=== PATIENT | male | born 1930 | race Hispanic/Latino ===

== ENCOUNTER 2019-03-13 10:57 | Day surgery (SDC) | payer MEDICARE ==
[2019-03-13] MEDS ORDERED: NACL 0.9% 1000 ML 1,000 ML IV SCH (12:00)
[2019-03-13] MEDS ORDERED: DIPRIVAN 10 MG/ML IV ONE (12:18)
[2019-03-13] MEDS ORDERED: VERSED ONE (12:18)
[2019-03-13] MEDS ORDERED: AMIDATE IV ONE (12:22)
--- NOTE | 2019-03-13 12:43 | Procedure Note ---
Date of procedure: 03/13/19 Pre-op diagnosis: GERD Post-op diagnosis: other (Moderate,Distal Erosive Esophagitis (r/o Yip's Esophagus)/ Gastritis/ No Peptic Ulcer Disease noted) Procedure: EGD with Biopsy Anesthesia: MAC Surgeon: KIRILL QUINTERO Estimated blood loss: minimal Pathology: list Specimen disposition: to lab Condition: stable Disposition: same day (Continue treatment with PPI> Avoid aspirin and NSAID and anticoagulants for 3 days. Follow up in 1 to 2 weeks ([phone]).)
--- NOTE | 2019-03-13 12:50 | Operative Report ---
PROCEDURE: EGD with biopsy. INDICATIONS: This is an 88-year-old white male with a history of GERD symptoms over a long period of time. He also has an underlying history of coronary artery disease and has a pacemaker. He is on multiple medications including blood thinners like Xarelto. In addition, he is on omeprazole, aspirin, atenolol, vitamin B12, benazepril, calcium and vitamin D3 and Crestor. Because of his persistent GERD symptoms, EGD was done to assess for any worsening of his esophagitis or any evidence of Yip's esophagus. He also has a prior history of cholecystectomy, history of ischemic colitis and a fatty liver and hypothyroidism. DESCRIPTION OF PROCEDURE: The procedure was done after getting informed consent with MAC anesthesia. Instrument was passed through the hypopharynx into the esophagus, which showed moderate distal erosive esophagitis. Photodocumentation and biopsy was obtained. The stomach showed some mild antral gastritis. No ulcers were noted in the straight or the retroverted view. The pylorus is patent. The duodenum in the first and the second portion appeared normal. Biopsy was done from the gastric antrum and gastric body to rule out for H. pylori and atrophic gastritis. There was minimal bleeding from the biopsy sites and no complications associated with the procedure. ASSESSMENT: Gastroesophageal reflux disease symptoms, moderate distal erosive esophagitis, gastritis. No peptic ulcer disease noted. PLAN: Plan is to continue treatment with PPI and to hold the Xarelto for an additional 2-3 days if possible as well as his aspirin and aspirin-related products and follow up in the office in 1-2 weeks' time. Donna BOWDEN was in the room throughout the entirety of the procedure. There were no complications associated with the procedure and only minimal bleeding associated with the biopsies. JOB# [id number] AUDIE/KAROLYN
--- NOTE | 2019-03-13 13:16 | Anesthesia Day of Surgery ---
Anesthesia Day of Surgery - Day of Surgery Patient Examined: Yes Patient H&P Reviewed: Yes Patient is NPO: Yes Beta Blockers: Yes
--- NOTE | 2019-03-13 13:17 | Anesthesia Consultation ---
Anesthesia Consult and Med Hx Date of service: 03/13/19 - Airway Anesthetic Teeth Evaluation: Good ROM Head & Neck: Adequate Mental/Hyoid Distance: Adequate Mallampati Class: Class III Intubation Access Assessment: Good - Pulmonary Exam CTA: Yes - Cardiac Exam Cardiac Exam: No Murmur - Pre-Operative Health Status ASA Pre-Surgery Classification: ASA3 - Cardiovascular System Hx Hypertension: Yes Hx Coronary Artery Disease: Yes Hx Pacemaker: Yes
[2019-03-13 13:40] VITALS: BP 122/78
== END 2019-03-13 10:58 | disposition home or self-care (01) ==
LOC: GIO 10:57
DX: K21.0 Gastro-esophageal reflux disease with esophagitis (principal); K29.70 Gastritis, unspecified, without bleeding; K31.89 Other diseases of stomach and duodenum; I25.10 Atherosclerotic heart disease of native coronary artery without angina pectoris; E03.9 Hypothyroidism, unspecified; I11.0 Hypertensive heart disease with heart failure; I50.9 Heart failure, unspecified; Z90.49 Acquired absence of other specified parts of digestive tract; Z95.0 Presence of cardiac pacemaker; Z79.82 Long term (current) use of aspirin; Z79.899 Other long term (current) drug therapy; Z96.652 Presence of left artificial knee joint; Z98.890 Other specified postprocedural states
CPT/HCPCS: 43239; 88305; 88342; J2250; J2704; J7030

== ENCOUNTER 2019-05-25 10:21 | Inpatient (IN) | payer MEDICARE ==
[2019-05-25 10:57] LABS: Basophils % (Auto) 0.7 % (0.0-1.8); Eosinophils # (Auto) 0.1 K/mm3 (0.0-0.4); Eosinophils % (Auto) 0.8 % (0.0-4.3); Hematocrit 47.7 % (35.5-45.6); Hemoglobin 16.1 gm/dl (11.8-15.2); Lymphocytes % (Auto) 28.8 % (13.4-35.0); Mean Corpuscular HGB Conc 34 % (32-34); Mean Corpuscular Volume 88 fl (84-94); Monocytes # (Auto) 0.5 K/mm3 (0.0-0.8); Monocytes % (Auto) 7.4 % (0.0-7.3); Platelet Count 121 K/mm3 (140-440); Red Blood Count 5.41 M/mm3 (3.65-5.03); Red Cell Distribution Width 14.2 % (13.2-15.2)
--- NOTE | 2019-05-25 11:04 | Cat Scan Report ---
CT HEAD WITHOUT CONTRAST INDICATION : Code stroke. Neurologic deficits less than 6 hours or symptoms present upon awakening. TECHNIQUE: Axial, coronal and sagittal CT imaging was performed from the skull apex through the skul l base without contrast. All CT scans at this location are performed using CT dose reduction for ALA RA by means of automated exposure control. COMPARISON: CT head without contrast from 03/20/2014. FINDINGS: PARENCHYMA: No mass, midline shift, hemorrhage, extraaxial collection or acute territorial infarctio n. 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 Generalized atrophy is consist ent with the patient's age. VENTRICLES: Prominent secondary to atrophy. No acute abnormality. SOFT TISSUES: Soft tissues including the orbits appear normal. BONES: No acute osseous abnormality. SINUSES: No significant abnormality. ADDITIONAL FINDINGS: There is dense calcification of the distal internal carotid arteries. IMPRESSION: 1. No acute intracranial abnormality. If there is continued concern for an acute stroke, an MRI of th e brain without contrast is recommended for further evaluation. 2. Additional chronic changes as above. COMMUNICATION: Radiologist: Dr. Hansen Time of Discovery: 09:55 Time of Communication: 10:00 Licensed Practitioner Receiving Report: Dr. Alonso Read Back Performed: Yes. Signer Name: Roni Hansen MD Signed: 05/25/2019 11:00 AM Workstation Name: [id number]
--- NOTE | 2019-05-25 11:09 | Emergency Department Report ---
ED Neuro Deficit HPI - General Chief Complaint: Neuro Symptoms/Deficit Stated Complaint: NEURO SYMPTOMS Time Seen by Provider: 05/25/19 10:48 Source: patient, family Mode of arrival: Ambulatory Limitations: No Limitations - History of Present Illness Initial Comments: 88-year-old male with [place] episode [place] confusion at the airport at about 10:00 today. The patient drove to the airport successfully to pickup family members. However when they got out to the street the patient was confused. He pulled over to the side of the road and had an episode of right arm and face jerking. This lasted for several seconds. He was brought to the emergency department as a "code stroke". At the time my encounter he had completely returned to his baseline per his family although they state that he is "repeating himself". Patient did mention to me that he had had left arm and shoulder discomfort intermittently over the last 2-3 weeks and that he had seen a physician twice. However for an 88-year-old gentleman his speech was not overly repetitive. Family states that this is not his baseline. Any case, he was completely oriented 4 and fully capable of communication. -: Sudden, minutes(s) Location: right arm, other (right face and mouth twitching on the right) Presenting Symptoms: Present: Altered Mental Status History of same: No (no prior history of seizure or known stroke) Place: other (Airport) Severity: moderate Quality: other Improves With: other (spontaneous) Worsens With: none On Anticoagulants: Yes Context: sudden onset Associated Symptoms: denies other symptoms - Related Data Home Medications: Home Medications Medication Instructions Recorded Confirmed Last Taken Aspirin BABY CHEW TAB 81 mg PO DAILY 03/13/19 03/13/19 03/11/19 Atenolol 25 mg PO DAILY 03/13/19 03/13/19 03/13/19 Benazepril (Nf) 20 mg PO DAILY 03/13/19 03/13/19 03/13/19 Calcium 600-D3 Plus Caplet 1 tab PO DAILY 03/13/19 03/13/19 03/12/19 Crestor 10 mg PO DAILY 03/13/19 03/13/19 03/12/19 Cyanocobalamin 500 mg PO DAILY 03/13/19 03/13/19 03/12/19 Levothyroxine 50 mg PO DAILY 06/09/1903/13/19 03/12/19 Multiple Vitamins 1 tab PO DAILY 03/13/19 03/13/19 03/12/19 Omeprazole 20 mg PO DAILY 03/13/19 03/13/19 03/12/19 Tamsulosin 1 tab PO DAILY 03/13/19 03/13/19 03/12/19 Vitamin D3 2,000 UNIT CAP 1 tab PO DAILY 03/13/19 03/13/19 03/12/19 Xarelto 10 mg PO DAILY 03/13/19 03/13/19 03/11/19 Allergies/Adverse Reactions: Allergies Allergy/AdvReac Type Severity Reaction Status Date / Time No Known Allergies Allergy Verified 03/13/19 11:43 ED Review of Systems ROS: Stated complaint: NEURO SYMPTOMS Other details as noted in HPI Constitutional: denies: chills, fever Eyes: denies: eye pain, eye discharge, vision change ENT: denies: ear pain, throat pain Respiratory: denies: cough, shortness of breath, wheezing Cardiovascular: denies: chest pain, palpitations Endocrine: no symptoms reported Gastrointestinal: denies: abdominal pain, nausea, diarrhea Genitourinary: denies: urgency, dysuria Musculoskeletal: as per HPI (intermittent left upper extremity discomfort not currently). denies: back pain, joint swelling, arthralgia Skin: denies: rash, lesions Neurological: as per HPI, other. denies: headache, weakness, paresthesias Psychiatric: denies: anxiety, depression Hematological/Lymphatic: denies: easy bleeding, easy bruising ED Past Medical Hx - Past Medical History Previous Medical History?: Yes Hx Hypertension: Yes Hx Congestive Heart Failure: Yes - Surgical History Past Surgical History?: Yes Hx Coronary Stent: Yes (X3) Hx Pacemaker: Yes Hx Cholecystectomy: Yes - Social History Smoking Status: Never Smoker - Medications Home Medications: Home Medications Medication Instructions Recorded Confirmed Last Taken Type Aspirin BABY CHEW TAB 81 mg PO DAILY 03/13/19 03/13/19 03/11/19 History Atenolol 25 mg PO DAILY 03/13/19 03/13/19 03/13/19 History Benazepril (Nf) 20 mg PO DAILY 03/13/19 03/13/19 03/13/19 History Calcium 600-D3 Plus Caplet 1 tab PO DAILY 03/13/19 03/13/19 03/12/19 History Crestor 10 mg PO DAILY 03/13/19 03/13/19 03/12/19 History Cyanocobalamin 500 mg PO DAILY 03/13/19 03/13/19 03/12/19 History Levothyroxine 50 mg PO DAILY 03/13/19 03/13/19 03/12/19 History Multiple Vitamins 1 tab PO DAILY 03/13/19 03/13/19 03/12/19 History Omeprazole 20 mg PO DAILY 03/13/19 03/13/19 03/12/19 History Tamsulosin 1 tab PO DAILY 03/13/19 03/13/19 03/12/19 History Vitamin D3 2,000 UNIT CAP 1 tab PO DAILY 03/13/19 03/13/19 03/12/19 History Xarelto 10 mg PO DAILY 03/13/19 03/13/19 03/11/19 History ED Neuro Physical Exam - General Limitations: No Limitations General appearance: alert, in no apparent distress Suspected Stroke: No - Head Head exam: Present: atraumatic, normocephalic - Eye Eye exam: Present: normal appearance. Absent: scleral icterus - ENT ENT exam: Present: mucous membranes moist - Neck Neck exam: Present: normal inspection - Respiratory Respiratory exam: Present: normal lung sounds bilaterally. Absent: respiratory distress - Cardiovascular Cardiovascular Exam: Present: regular rate, normal rhythm. Absent: systolic murmur, diastolic murmur, rubs, gallop - GI/Abdominal GI/Abdominal exam: Present: soft, normal bowel sounds. Absent: distended, tenderness, guarding, rebound - Rectal Rectal exam: Present: deferred - Extremities Exam Extremities exam: Present: normal inspection - Back Exam Back exam: Present: normal inspection - Neurological Exam Neurological exam: Present: alert, oriented X3, CN II-XII intact. Absent: motor sensory deficit - NIHSS Assessment Interval: Baseline 1a. Level of Consciousness: alert/keenly responsive 1b. LOC Questions: answers both correctly 1c. LOC Commands: performs tasks correctly 2. Best Gaze: normal 3. Visual: no visual loss 4. Facial Palsy: normal symmetrical movement 5b. Motor Arm Right: no drift 5a. Motor Arm Left: no drift 6a. Motor Leg Left: no drift 6b. Motor Leg Right: no drift 7. Limb Ataxia: absent 8. Sensory: normal 9. Best Language: no aphasia 10. Dysarthria: normal 11. Extinction/Inattention: no abnormality Total Score: 0 Stroke Severity: No Stroke Symptoms - Psychiatric Psychiatric exam: Present: normal affect, normal mood - Skin Skin exam: Present: warm, dry, intact, normal color. Absent: rash ED Course Vital Signs 05/25/19 11:08 Temperature 97.8 F Pulse Rate 69 Respiratory 17 Rate Blood Pressure 127/79 [Left] O2 Sat by Pulse 97 Oximetry - Reevaluation(s) Reevaluation #1: It does sound like the patient had a complex partial seizure. I will give him a gram of Keppra. He will be admitted for further care and evaluation/observatio n. Perhaps a pacemaker interrogation could be considered. However I do not think it is emergent at this time. 05/25/19 11:09 Reevaluation #2: I spoke with telephone neurology. They're in concurrence with the presumptive diagnosis of seizure. They saw a left frontal hypodensity consistent with an old silent stroke which might be the focus. They agreed with them. Treatment with Keppra. Unfortunately the patient is not a candidate for MR study since he has a pacemaker. They agreed with hospitalization at this time. 05/25/19 11:13 - Lab Data Result diagrams: 05/25/19 10:44 05/25/19 10:44 Lab Results 05/25/19 05/25/19 05/25/19 Range/Units 10:32 10:44 10:44 WBC 6.9 (4.5-11.0) K/mm3 RBC 5.41 H (3.65-5.03) M/mm3 Hgb 16.1 H (11.8-15.2) gm/dl Hct 47.7 H (35.5-45.6) % MCV 88 (84-94) fl MCH 30 (28-32) pg MCHC 34 (32-34) % RDW 14.2 (13.2-15.2) % Plt Count 121 L (140-440) K/mm3 Lymph % (Auto) 28.8 (13.4-35.0) % [place] % (Auto) 7.4 H (0.0-7.3) % Eos % (Auto) 0.8 (0.0-4.3) % Baso % (Auto) 0.7 (0.0-1.8) % Lymph # 2.0 (1.2-5.4) K/mm3 [place] # 0.5 (0.0-0.8) K/mm3 Eos # 0.1 (0.0-0.4) K/mm3 Baso # 0.0 (0.0-0.1) K/mm3 Seg Neutrophils % 62.3 (40.0-70.0) % Seg Neutrophils # 4.3 (1.8-7.7) K/mm3 PT 15.5 H (12.2-14.9) Sec. INR 1.26 H (0.87-1.13) APTT 32.9 (24.2-36.6) Sec. Thrombin Time (15.1-19.6) Sec. Sodium (137-145) mmol/L Potassium (3.6-5.0) mmol/L Chloride (98-107) mmol/L Carbon Dioxide (22-30) mmol/L Anion Gap mmol/L BUN (9-20) mg/dL Creatinine (0.8-1.5) mg/dL Estimated GFR ml/min BUN/Creatinine Ratio % Glucose (75-100) mg/dL POC Glucose 117 H (70-105) Lactic Acid (0.7-2.0) mmol/L Calcium (8.4-10.2) mg/dL Magnesium (1.7-2.3) mg/dL Total Bilirubin (0.1-1.2) mg/dL Direct Bilirubin (0-0.2) mg/dL Indirect Bilirubin mg/dL AST (5-40) units/L ALT (7-56) units/L Alkaline Phosphatase (35-129) units/L Ammonia (25-60) umol/L Total Creatine Kinase (55-170) units/L CK-MB (CK-2) (0.0-4.0) ng/mL CK-MB (CK-2) Rel Index (0-4) Troponin T (0.00-0.029) ng/mL NT-Pro-B Natriuret Pep (0-900) pg/mL Total Protein (6.3-8.2) g/dL Albumin (3.9-5) g/dL Albumin/Globulin Ratio % 05/25/19 05/25/19 05/25/19 Range/Units 10:44 10:44 10:54 WBC (4.5-11.0) K/mm3 RBC (3.65-5.03) M/mm3 Hgb (11.8-15.2) gm/dl Hct (35.5-45.6) % MCV (84-94) fl MCH (28-32) pg MCHC (32-34) % RDW (13.2-15.2) % Plt Count (140-440) K/mm3 Lymph % (Auto) (13.4-35.0) % [place] % (Auto) (0.0-7.3) % Eos % (Auto) (0.0-4.3) % Baso % (Auto) (0.0-1.8) % Lymph # (1.2-5.4) K/mm3 [place] # (0.0-0.8) K/mm3 Eos # (0.0-0.4) K/mm3 Baso # (0.0-0.1) K/mm3 Seg Neutrophils % (40.0-70.0) % Seg Neutrophils # (1.8-7.7) K/mm3 PT (12.2-14.9) Sec. INR (0.87-1.13) APTT (24.2-36.6) Sec. Thrombin Time 16.5 (15.1-19.6) Sec. Sodium 142 (137-145) mmol/L Potassium 4.6 (3.6-5.0) mmol/L Chloride 104.5 (98-107) mmol/L Carbon Dioxide 21 L (22-30) mmol/L Anion Gap 21 mmol/L BUN 19 (9-20) mg/dL Creatinine 0.9 (0.8-1.5) mg/dL Estimated GFR > 60 ml/min BUN/Creatinine Ratio 21 % Glucose 119 H (75-100) mg/dL POC Glucose (70-105) Lactic Acid (0.7-2.0) mmol/L Calcium 9.4 (8.4-10.2) mg/dL Magnesium 1.70 (1.7-2.3) mg/dL Total Bilirubin 1.30 H (0.1-1.2) mg/dL Direct Bilirubin 0.2 (0-0.2) mg/dL Indirect Bilirubin 1.1 mg/dL AST 20 (5-40) units/L ALT 13 (7-56) units/L Alkaline Phosphatase 70 (35-129) units/L Ammonia (25-60) umol/L Total Creatine Kinase (55-170) units/L CK-MB (CK-2) (0.0-4.0) ng/mL CK-MB (CK-2) Rel Index (0-4) Troponin T < 0.010 (0.00-0.029) ng/mL NT-Pro-B Natriuret Pep (0-900) pg/mL Total Protein 6.5 (6.3-8.2) g/dL Albumin 4.1 (3.9-5) g/dL Albumin/Globulin Ratio 1.7 % 05/25/19 05/25/19 05/25/19 Range/Units 10:54 10:54 10:54 WBC (4.5-11.0) K/mm3 RBC (3.65-5.03) M/mm3 Hgb (11.8-15.2) gm/dl Hct (35.5-45.6) % MCV (84-94) fl MCH (28-32) pg MCHC (32-34) % RDW (13.2-15.2) % Plt Count (140-440) K/mm3 Lymph % (Auto) (13.4-35.0) % [place] % (Auto) (0.0-7.3) % Eos % (Auto) (0.0-4.3) % Baso % (Auto) (0.0-1.8) % Lymph # (1.2-5.4) K/mm3 [place] # (0.0-0.8) K/mm3 Eos # (0.0-0.4) K/mm3 Baso # (0.0-0.1) K/mm3 Seg Neutrophils % (40.0-70.0) % Seg Neutrophils # (1.8-7.7) K/mm3 PT (12.2-14.9) Sec. INR (0.87-1.13) APTT (24.2-36.6) Sec. Thrombin Time (15.1-19.6) Sec. Sodium (137-145) mmol/L Potassium (3.6-5.0) mmol/L Chloride (98-107) mmol/L Carbon Dioxide (22-30) mmol/L Anion Gap mmol/L BUN (9-20) mg/dL Creatinine (0.8-1.5) mg/dL Estimated GFR ml/min BUN/Creatinine Ratio % Glucose (75-100) mg/dL POC Glucose (70-105) Lactic Acid 1.70 (0.7-2.0) mmol/L Calcium (8.4-10.2) mg/dL Magnesium (1.7-2.3) mg/dL Total Bilirubin (0.1-1.2) mg/dL Direct Bilirubin (0-0.2) mg/dL Indirect Bilirubin mg/dL AST (5-40) units/L ALT (7-56) units/L Alkaline Phosphatase (35-129) units/L Ammonia 27.0 (25-60) umol/L Total Creatine Kinase (55-170) units/L CK-MB (CK-2) (0.0-4.0) ng/mL CK-MB (CK-2) Rel Index (0-4) Troponin T (0.00-0.029) ng/mL NT-Pro-B Natriuret Pep 498.3 (0-900) pg/mL Total Protein (6.3-8.2) g/dL Albumin (3.9-5) g/dL Albumin/Globulin Ratio % 05/25/19 Range/Units 10:54 WBC (4.5-11.0) K/mm3 RBC (3.65-5.03) M/mm3 Hgb (11.8-15.2) gm/dl Hct (35.5-45.6) % MCV (84-94) fl MCH (28-32) pg MCHC (32-34) % RDW (13.2-15.2) % Plt Count (140-440) K/mm3 Lymph % (Auto) (13.4-35.0) % [place] % (Auto) (0.0-7.3) % Eos % (Auto) (0.0-4.3) % Baso % (Auto) (0.0-1.8) % Lymph # (1.2-5.4) K/mm3 [place] # (0.0-0.8) K/mm3 Eos # (0.0-0.4) K/mm3 Baso # (0.0-0.1) K/mm3 Seg Neutrophils % (40.0-70.0) % Seg Neutrophils # (1.8-7.7) K/mm3 PT (12.2-14.9) Sec. INR (0.87-1.13) APTT (24.2-36.6) Sec. Thrombin Time (15.1-19.6) Sec. Sodium (137-145) mmol/L Potassium (3.6-5.0) mmol/L Chloride (98-107) mmol/L Carbon Dioxide (22-30) mmol/L Anion Gap mmol/L BUN (9-20) mg/dL Creatinine (0.8-1.5) mg/dL Estimated GFR ml/min BUN/Creatinine Ratio % Glucose (75-100) mg/dL POC Glucose (70-105) Lactic Acid (0.7-2.0) mmol/L Calcium (8.4-10.2) mg/dL Magnesium (1.7-2.3) mg/dL Total Bilirubin (0.1-1.2) mg/dL Direct Bilirubin (0-0.2) mg/dL Indirect Bilirubin mg/dL AST (5-40) units/L ALT (7-56) units/L Alkaline Phosphatase (35-129) units/L Ammonia (25-60) umol/L Total Creatine Kinase 76 (55-170) units/L CK-MB (CK-2) 3.2 (0.0-4.0) ng/mL CK-MB (CK-2) Rel Index 4.2 H (0-4) Troponin T (0.00-0.029) ng/mL NT-Pro-B Natriuret Pep (0-900) pg/mL Total Protein (6.3-8.2) g/dL Albumin (3.9-5) g/dL Albumin/Globulin Ratio % Paced rhythm with complete capture. The underlying rhythm appears to be atrial fibrillation. 05/25/19 11:53 - Radiology Data interpreted by me: Discussed with Val[facility] neuro. No acute findings per radiologist. Tell her neuro saw a left frontal hypodensity consistent with old ischemic ischemic injury. Critical care attestation.: If time is entered above; I have spent that time in minutes in the direct care of this critically ill patient, excluding procedure time. 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
[2019-05-25 11:13] LABS: INR 1.26 (0.87-1.13)
[2019-05-25 11:14] LABS: Partial Thromboplastin Time 32.9 Sec. (24.2-36.6)
[2019-05-25] MEDS ORDERED: KEPPRA 1,000 MG/NS 0.75% 100ML 1,000 MG/100 ML BAG IV ONE (11:14)
--- NOTE | 2019-05-25 11:23 | Emergency Department Report ---
ED Neuro Deficit HPI - General Chief Complaint: Neuro Symptoms/Deficit Stated Complaint: NEURO SYMPTOMS Time Seen by Provider: 05/25/19 10:48 Source: patient, family Mode of arrival: Ambulatory Limitations: No Limitations - History of Present Illness Initial Comments: [facility] Date of Service: 05/25/2019 10:30:10 Impression: TIA v seizure Metrics: Last Known Well: 05/25/2019 08:45:00 [facility] Notification Time: 05/25/2019 10:29:11 Arrival Time: 05/25/2019 10:21:00 Stamp Time: 05/25/2019 10:30:10 Time First Login Attempt: 05/25/2019 10:32:00 Video Start Time: 05/25/2019 10:32:00 Symptoms: Confusion NIHSS Start Assessment Time: 05/25/2019 10:40:00 Patient is not a candidate for tPA. Patient was not deemed candidate for tPA thrombolytics because of Current use of NOAs. Video End Time: 05/25/2019 10:45:00 CT head showed no acute hemorrhage or acute core infarct. CT head was reviewed. Advanced imaging was not obtained as the presentation was not suggestive of Large Vessel Occlusive Disease. ER physician notified of the decision on thrombolytics management. Comments: 88 yo with transient confusion with RUE twitching. TIA v seizure. Now back to baseline, NIHSS 0. CT with no acute process, but there is a L frontal hypodensity suggesting prior silent stroke. Differential today TIA v focal seizure. Will need further work-up but with NIHSS 0 no tpA or intervention indicated. Our recommendations are outlined below. Recommendations: Continue Xarelto Recommended Scan: MRI Head with and Without Contrast Lipid Panel to Be Obtained, if Not Done in the Last Three Months Therapies: Physical Therapy, Occupational Therapy, Speech Therapy Assessment When Applicable Dysphaghia Screen: Swallow Evaluation, Bedside DVT prophylaxis: Choice of Primary Team Disposition: Sign Out Sign Out: Discussed with Emergency Department Provider History of Present Illness: Patient is a 88 years old Male. Patient was brought by private transportation with symptoms of Confusion 88 yo was noted to be confused when picking family up at airport this morning. Left home and per was normal at 0845. When family met him he was confused, did not recognize daughter, and granddaughter noted RUE twitching. They decided to bring him to the ER, and he was alert enough to direct the family to the ER. Since arrival all symptoms resolved and at or near baseline. He does take Xarelto, last dose yesterday afternoon. CT head showed no acute hemorrhage or acute core infarct. CT head was reviewed. There is history of Recent Anticoagulants. Examination: 1A: Level of Consciousness - Alert; keenly responsive + 0 1B: Ask Month and Age - Both Questions Right + 0 1C: Blink Eyes & Squeeze Hands - Performs Both Tasks + 0 2: Test Horizontal Extraocular Movements - Normal + 0 3: Test Visual Luis - No Visual Loss + 0 4: Test Facial Palsy (Use Grimace if Obtunded) - Normal symmetry + 0 5A: Test Left Arm Motor Drift - No Drift for 10 Seconds + 0 5B: Test Right Arm Motor Drift - No Drift for 10 Seconds + 0 6A: Test Left Leg Motor Drift - No Drift for 5 Seconds + 0 6B: Test Right Leg Motor Drift - No Drift for 5 Seconds + 0 7: Test Limb Ataxia (FNF/Heel-Valente) - No Ataxia + 0 8: Test Sensation - Normal; No sensory loss + 0 9: Test Language/Aphasia - Normal; No aphasia + 0 10: Test Dysarthria - Normal + 0 11: Test Extinction/Inattention - No abnormality + 0 NIHSS Score: 0 Patient was informed the Neurology Consult would happen via TeleHealth consult by way of interactive audio and video telecommunications and consented to receiving care in this manner. Due to the immediate potential for life-threatening deterioration due to underlying acute neurologic illness, I spent 35 minutes providing critical care. This time includes time for face to face visit via telemedicine, review of medical records, imaging studies and discussion of findings with providers, the patient and/or family. Dr Albaro Bolanos [facility] Last Observed Normal: 08:45 Location: right arm, other (right face and mouth twitching on the right) History of same: No (no prior history of seizure or known stroke) Place: other ([place]) Severity: moderate Quality: other Improves With: other (spontaneous) Worsens With: none On Anticoagulants: Yes - Related Data Home Medications: Home Medications Medication Instructions Recorded Confirmed Last Taken Aspirin BABY CHEW TAB 81 mg PO DAILY 03/13/19 03/13/19 03/11/19 Atenolol 25 mg PO DAILY 03/13/19 03/13/19 03/13/19 Benazepril (Nf) 20 mg PO DAILY 03/13/19 03/13/19 03/13/19 Calcium 600-D3 Plus Caplet 1 tab PO DAILY 03/13/19 03/13/19 03/12/19 Crestor 10 mg PO DAILY 03/13/19 03/13/19 03/12/19 Cyanocobalamin 500 mg PO DAILY 03/13/19 03/13/19 03/12/19 Levothyroxine 50 mg PO DAILY 03/13/19 03/13/19 03/12/19 Multiple Vitamins 1 tab PO DAILY 03/13/19 03/13/19 03/12/19 Omeprazole 20 mg PO DAILY 03/13/19 03/13/19 03/12/19 Tamsulosin 1 tab PO DAILY 03/13/19 03/13/19 03/12/19 Vitamin D3 2,000 UNIT CAP 1 tab PO DAILY 03/13/19 03/13/19 03/12/19 Xarelto 10 mg PO DAILY 03/13/19 03/13/19 03/11/19 Allergies/Adverse Reactions: Allergies Allergy/AdvReac Type Severity Reaction Status Date / Time No Known Allergies Allergy Verified 03/13/19 11:43 ED Review of Systems ROS: Stated complaint: NEURO SYMPTOMS Other details as noted in HPI Constitutional: denies: chills, fever Eyes: denies: eye pain, eye discharge, vision change ENT: denies: ear pain, throat pain Respiratory: denies: cough, shortness of breath, wheezing Cardiovascular: denies: chest pain, palpitations Endocrine: no symptoms reported Gastrointestinal: denies: abdominal pain, nausea, diarrhea Genitourinary: denies: urgency, dysuria Musculoskeletal: as per HPI (intermittent left upper extremity discomfort not currently). denies: back pain, joint swelling, arthralgia Skin: denies: rash, lesions Neurological: as per HPI, other. denies: headache, weakness, paresthesias Psychiatric: denies: anxiety, depression Hematological/Lymphatic: denies: easy bleeding, easy bruising ED Past Medical Hx - Past Medical History Previous Medical History?: Yes Hx Hypertension: Yes Hx Congestive Heart Failure: Yes - Surgical History Past Surgical History?: Yes Hx Coronary Stent: Yes (X3) Hx Pacemaker: Yes Hx Cholecystectomy: Yes - Social History Smoking Status: Never Smoker - Medications Home Medications: Home Medications Medication Instructions Recorded Confirmed Last Taken Type Aspirin BABY CHEW TAB 81 mg PO DAILY 03/13/19 03/13/19 03/11/19 History Atenolol 25 mg PO DAILY 03/13/19 03/13/19 03/13/19 History Benazepril (Nf) 20 mg PO DAILY 03/13/19 03/13/19 03/13/19 History Calcium 600-D3 Plus Caplet 1 tab PO DAILY 03/13/19 03/13/19 03/12/19 History Crestor 10 mg PO DAILY 03/13/19 03/13/19 03/12/19 History Cyanocobalamin 500 mg PO DAILY 03/13/19 03/13/19 03/12/19 History Levothyroxine 50 mg PO DAILY 03/13/19 03/13/19 03/12/19 History Multiple Vitamins 1 tab PO DAILY 03/13/19 03/13/19 03/12/19 History Omeprazole 20 mg PO DAILY 03/13/19 03/13/19 03/12/19 History Tamsulosin 1 tab PO DAILY 03/13/19 03/13/19 03/12/19 History Vitamin D3 2,000 UNIT CAP 1 tab PO DAILY 03/13/19 03/13/19 03/12/19 History Xarelto 10 mg PO DAILY 03/13/19 03/13/19 03/11/19 History ED Neuro Physical Exam - General Limitations: No Limitations General appearance: alert, in no apparent distress Suspected Stroke: Yes - NIHSS Assessment Interval: Baseline 1a. Level of Consciousness: alert/keenly responsive 1b. LOC Questions: answers both correctly 1c. LOC Commands: performs tasks correctly 2. Best Gaze: normal 3. Visual: no visual loss 4. Facial Palsy: normal symmetrical movement 5b. Motor Arm Right: no drift 5a. Motor Arm Left: no drift 6a. Motor Leg Left: no drift 6b. Motor Leg Right: no drift 7. Limb Ataxia: absent 8. Sensory: normal 9. Best Language: no aphasia 10. Dysarthria: normal 11. Extinction/Inattention: no abnormality Total Score: 0 Stroke Severity: No Stroke Symptoms ED Course Vital Signs 05/25/19 11:08 Temperature 97.8 F Pulse Rate 69 Respiratory 17 Rate Blood Pressure 127/79 [Left] O2 Sat by Pulse 97 Oximetry - Lab Data Result diagrams: 05/25/19 10:44 Lab Results 05/25/19 05/25/19 05/25/19 Range/Units 10:32 10:44 10:44 WBC 6.9 (4.5-11.0) K/mm3 RBC 5.41 H (3.65-5.03) M/mm3 Hgb 16.1 H (11.8-15.2) gm/dl Hct 47.7 H (35.5-45.6) % MCV 88 (84-94) fl MCH 30 (28-32) pg MCHC 34 (32-34) % RDW 14.2 (13.2-15.2) % Plt Count 121 L (140-440) K/mm3 Lymph % (Auto) 28.8 (13.4-35.0) % Gem % (Auto) 7.4 H (0.0-7.3) % Eos % (Auto) 0.8 (0.0-4.3) % Baso % (Auto) 0.7 (0.0-1.8) % Lymph # 2.0 (1.2-5.4) K/mm3 Gem # 0.5 (0.0-0.8) K/mm3 Eos # 0.1 (0.0-0.4) K/mm3 Baso # 0.0 (0.0-0.1) K/mm3 Seg Neutrophils % 62.3 (40.0-70.0) % Seg Neutrophils # 4.3 (1.8-7.7) K/mm3 PT 15.5 H (12.2-14.9) Sec. INR 1.26 H (0.87-1.13) APTT 32.9 (24.2-36.6) Sec. Thrombin Time (15.1-19.6) Sec. POC Glucose 117 H (70-105) 08/24/19 Range/Units 10:44 WBC (4.5-11.0) K/mm3 RBC (3.65-5.03) M/mm3 Hgb (11.8-15.2) gm/dl Hct (35.5-45.6) % MCV (84-94) fl MCH (28-32) pg MCHC (32-34) % RDW (13.2-15.2) % Plt Count (140-440) K/mm3 Lymph % (Auto) (13.4-35.0) % Gem % (Auto) (0.0-7.3) % Eos % (Auto) (0.0-4.3) % Baso % (Auto) (0.0-1.8) % Lymph # (1.2-5.4) K/mm3 Gem # (0.0-0.8) K/mm3 Eos # (0.0-0.4) K/mm3 Baso # (0.0-0.1) K/mm3 Seg Neutrophils % (40.0-70.0) % Seg Neutrophils # (1.8-7.7) K/mm3 PT (12.2-14.9) Sec. INR (0.87-1.13) APTT (24.2-36.6) Sec. Thrombin Time 16.5 (15.1-19.6) Sec. POC Glucose (70-105) Critical care attestation.: If time is entered above; I have spent that time in minutes in the direct care of this critically ill patient, excluding procedure time. ED Disposition Clinical Impression: Spell of altered consciousness Disposition: DC-09 OP ADMIT IP TO THIS HOSP Is pt being admited?: Yes Condition: Stable
[2019-05-25 11:31] LABS: Albumin 4.1 g/dL (3.9-5); Bilirubin,Direct 0.2 mg/dL (0-0.2); Creatine Kinase MB 3.2 ng/mL (0.0-4.0)
[2019-05-25 11:37] LABS: BUN/Creatinine Ratio 21; Blood Urea Nitrogen 19 mg/dL (9-20); Calcium 9.4 mg/dL (8.4-10.2); Hemolysis Index 25
[2019-05-25] MEDS ORDERED: BABY ASPIRIN PO ONE (11:56)
[2019-05-25 12:51] LABS: Bilirubin,Urine NEG (Negative); Blood,Urine NEG (Negative); Color,Urine Straw (Yellow); Mucus,Urine FEW /HPF; Protein,Urine <15 mg/dL mg/dL (Negative); Urobilinogen,Urine < 2.0 mg/dL (<2.0); WBC,Urine < 1.0 /HPF (0.0-6.0)
--- NOTE | 2019-05-25 13:59 | Progress Note ---
Subjective Date of service: 05/25/19 Interval history: see my note about Tele and CT result patient was on xarelto so obviously can not get tPA agree with CT and tele note I went back into recrd and checked the 2013 CT... see my analysis Objective - Vital Sign Vital Signs - 12hr 05/25/19 11:08 Temperature 97.8 F Pulse Rate 69 Respiratory 17 Rate Blood Pressure 127/79 [Left] O2 Sat by Pulse 97 Oximetry - Laboratory Findings CBC and BMP: 05/25/19 10:44 05/25/19 10:44 Abnormal Lab Findings: Abnormal Labs 05/25/19 05/25/19 05/25/19 10:32 10:44 10:44 RBC 5.41 H Hgb 16.1 H Hct 47.7 H Plt Count 121 L [place] % (Auto) 7.4 H PT 15.5 H INR 1.26 H Carbon Dioxide Glucose POC Glucose 117 H Total Bilirubin CK-MB (CK-2) Rel Index 05/25/19 05/25/19 05/25/19 10:44 10:54 10:54 RBC Hgb Hct Plt Count [place] % (Auto) PT INR Carbon Dioxide 21 L Glucose 119 H POC Glucose Total Bilirubin 1.30 H CK-MB (CK-2) Rel Index 4.2 H
[2019-05-25] MEDS ORDERED: MILK OF MAGNESIA PO PRN (14:21)
[2019-05-25] MEDS ORDERED: DULCOLAX PR PRN (14:21)
[2019-05-25] MEDS ORDERED: TYLENOL PO PRN (14:21)
[2019-05-25] MEDS ORDERED: PROVENTIL IH PRN (14:21)
[2019-05-25] MEDS ORDERED: REGLAN PO PRN (14:21)
[2019-05-25] MEDS ORDERED: ZOFRAN IV PRN (14:21)
[2019-05-25] MEDS ORDERED: PHENERGAN PR PRN (14:21)
[2019-05-25] MEDS ORDERED: SODIUM CHLORIDE FLUSH SYRINGE 10 ML IV PRN (14:21)
--- NOTE | 2019-05-25 14:27 | History and Physical Report ---
History of Present Illness Chief complaint: I really dont know what happened History of present illness: 88 YO Male with HTN, Systolic CHF, Obesity, BPH, HLD, Hypothyroidism, Paroxysmal Atrial Fib on Therapeutic Anticoagulation presents to ED for evaluation. Pt states that he was in his usual state of health today and drove to the airport to pickup driver members of his family. Pt acknowledges feeling confused, unable to speak, and subsequently losing consciousness, and "coming to" on the way to the hospital. Pt family members at bedside during exam and interview and reports that patient was confused while driving and was instructed to dross puller. Pt was noticed to have right arm and face "jerking" which lasted for several seconds. Pt transported to [facility] via private vehicle and upon arrival a code stroke was called. Pt seen and evaluated in ED and found to have symptoms consistent with CVA. Pt admitted to telemetry and initiated on CVA protocol. Teleneurology consulted. Pt deemed not to be a candidate for TPA. Neurology consulted in ED. Pt denies fever, chills, CP, Palpitations, NVD, Trauma, BRBPR, Productive cough, recent ill contacts, loss of bowel/bladder continence, skin rash, or recent ill contacts. Past History Past Medical History: atrial fib, CAD, heart failure, hypertension, other (BPH) Past Surgical History: cholecystectomy, Other (Cardiac stent placement, Pacemaker,) Social history: , lives with family Family history: hypertension Medications and Allergies Allergies Allergy/AdvReac Type Severity Reaction Status Date / Time No Known Allergies Allergy Verified 03/13/19 11:43 Home Medications Medication Instructions Recorded Confirmed Last Taken Type Aspirin BABY CHEW TAB 81 mg PO DAILY 03/13/19 05/25/19 03/11/19 History Atenolol 25 mg PO DAILY 03/13/19 05/25/19 03/13/19 History Benazepril (Nf) 20 mg PO DAILY 03/13/19 05/25/19 03/13/19 History Calcium 600-D3 Plus Caplet 1 tab PO DAILY 03/13/19 05/25/19 03/12/19 History Crestor 10 mg PO DAILY 03/13/19 05/25/19 03/12/19 History Cyanocobalamin 500 mg PO DAILY 03/13/19 05/25/19 03/12/19 History Levothyroxine 50 mg PO DAILY 06/09/1905/25/19 03/12/19 History Multiple Vitamins 1 tab PO DAILY 03/13/19 05/25/19 03/12/19 History Omeprazole 20 mg PO DAILY 03/13/19 05/25/19 03/12/19 History Tamsulosin 1 tab PO DAILY 03/13/19 05/25/19 03/12/19 History Vitamin D3 2,000 UNIT CAP 1 tab PO DAILY 03/13/19 05/25/19 03/12/19 History Xarelto 10 mg PO DAILY 03/13/19 05/25/19 03/11/19 History Active Meds: Active Medications Acetaminophen (Tylenol) 650 mg PO Q4H PRN PRN Reason: Pain, Mild (1-3) Albuterol (Proventil) 2.5 mg IH Q3HRT PRN PRN Reason: Shortness Of Breath Aspirin (Aspirin) 325 mg PO QDAY [facility] Atorvastatin Calcium (Lipitor) 40 mg PO QHS [facility] Bisacodyl (Dulcolax) 10 mg UT QDAY PRN PRN Reason: Constipation Magnesium Hydroxide (Milk Of Magnesia) 30 ml PO Q4H PRN PRN Reason: Constipation Metoclopramide HCl (Reglan) 10 mg PO Q6H PRN PRN Reason: Nausea And Vomiting Miscellaneous Medication (Calcium 600-D3 Plus Caplet) 1 tab PO DAILY [facility] Miscellaneous Medication (Cyanocobalamin) 500 mg PO DAILY [facility] Miscellaneous Medication (Levothyroxine) 50 mg PO DAILY [facility] Miscellaneous Medication (Multiple Vitamins) 1 tab PO DAILY [facility] Miscellaneous Medication (Omeprazole) 20 mg PO DAILY [facility] Miscellaneous Medication (Tamsulosin) 1 tab PO DAILY [facility] Miscellaneous Medication (Vitamin D3 2,000 Unit Cap) 1 tab PO DAILY [facility] Miscellaneous Medication (Xarelto) 10 mg PO DAILY [facility] Ondansetron HCl (Zofran) 4 mg IV Q8H PRN PRN Reason: Nausea And Vomiting Promethazine HCl (Phenergan) 25 mg UT Q6H PRN PRN Reason: Nausea And Vomiting Sodium Chloride (Sodium Chloride Flush Syringe 10 Ml) 10 ml INJ PRN PRN PRN Reason: LINE FLUSH Review of Systems Constitutional: no weight loss, no weight gain, no fever, no chills Ears, nose, mouth and throat: no ear pain, no ear discharge, no tinnitis, no decreased hearing, no nose pain, no nasal congestion Cardiovascular: no chest pain, no orthopnea, no palpitations, no rapid/irregular heart beat, no edema, no syncope, no lightheadedness Respiratory: no cough, no cough with sputum, no excessive sputum, no hemoptysis, no shortness of breath Gastrointestinal: no abdominal pain, no nausea, no vomiting, no diarrhea Genitourinary Male: no hematuria, no flank pain, no discharge, no urinary frequency, no urinary hesitancy Rectal: no pain, no incontinence, no bleeding Musculoskeletal: no neck stiffness, no neck pain, no shooting arm pain, no arm numbness/tingling, no low back pain, no shooting leg pain Integumentary: no rash, no pruritis, no redness, no sores, no wounds Neurological: transient paralysis, weakness, syncope, tremors, lack of coordination, change in speech, change in mentation, confusion, no paralysis, no parathesias, no numbness, no tingling, no vertigo Psychiatric: no anxiety, no memory loss, no change in sleep habits, no sleep disturbances, no insomnia, no hypersomnia, no change in appetite Endocrine: no cold intolerance, no heat intolerance, no polyphagia, no excessive thirst, no polydipsia Hematologic/Lymphatic: no easy bruising, no easy bleeding, no lymphadenopathy, no lymphedema Allergic/Immunologic: no urticaria, no allergic rhinitis, no wheezing, no anaphylaxis Exam - Constitutional Vitals: Temp Pulse Resp BP Pulse Ox 97.8 F 69 17 127/79 97 05/25/19 11:08 05/25/19 11:08 05/25/19 11:08 05/25/19 11:08 05/25/19 11:08 General appearance: Present: obese - EENT Eyes: Present: PERRL ENT: hearing intact, clear oral mucosa - Neck Neck: Present: supple, normal ROM - Respiratory Respiratory effort: normal Respiratory: bilateral: CTA - Cardiovascular Heart Sounds: Present: S1 & S2. Absent: rub, click - Extremities Extremities: pulses symmetrical, No edema Peripheral Pulses: within normal limits - Abdominal General gastrointestinal: Present: soft, non-tender, non-distended, normal bowel sounds Male genitourinary: Present: normal - Integumentary Integumentary: Present: clear, warm, dry - Musculoskeletal Musculoskeletal: gait normal, strength equal bilaterally - Psychiatric Psychiatric: appropriate mood/affect, intact judgment & insight - Neurologic Neurologic: CNII-XII intact, moves all extremities Results - Labs CBC & Chem 7: 05/25/19 10:44 05/25/19 10:44 Labs: Abnormal lab results 05/25/19 05/25/19 05/25/19 Range/Units 10:32 10:44 10:44 RBC 5.41 H (3.65-5.03) M/mm3 Hgb 16.1 H (11.8-15.2) gm/dl Hct 47.7 H (35.5-45.6) % Plt Count 121 L (140-440) K/mm3 Howard % (Auto) 7.4 H (0.0-7.3) % PT 15.5 H (12.2-14.9) Sec. INR 1.26 H (0.87-1.13) Carbon Dioxide (22-30) mmol/L Glucose (75-100) mg/dL POC Glucose 117 H (70-105) Total Bilirubin (0.1-1.2) mg/dL CK-MB (CK-2) Rel Index (0-4) 05/25/19 05/25/19 05/25/19 Range/Units 10:44 10:54 10:54 RBC (3.65-5.03) M/mm3 Hgb (11.8-15.2) gm/dl Hct (35.5-45.6) % Plt Count (140-440) K/mm3 Howard % (Auto) (0.0-7.3) % PT (12.2-14.9) Sec. INR (0.87-1.13) Carbon Dioxide 21 L (22-30) mmol/L Glucose 119 H (75-100) mg/dL POC Glucose (70-105) Total Bilirubin 1.30 H (0.1-1.2) mg/dL CK-MB (CK-2) Rel Index 4.2 H (0-4) Assessment and Plan - Patient Problems (1) CVA (cerebral vascular accident) Current Visit: Yes Status: Acute Qualifiers: Laterality of affected vessel: unspecified Plan to address problem: Stroke Protocol: CT head, MRI Brain, MRA Brain, Echo, Carotid Doppler, Lipid panel, Statin therapy, PT/OT/Speech therapy, Antiplatelet therapy, Neurology consulted, Seizure Precautions, EEG to evaluated for seizure activity, Neuro checks. (2) CHF (congestive heart failure) Current Visit: Yes Status: Acute Qualifiers: Heart failure type: systolic Heart failure chronicity: acute on chronic Qualified Code(s): I50.23 - Acute on chronic systolic (congestive) heart failure Plan to address problem: Admit to telemetry, Strict I/o, Afterload reduction, chest x ray, daily weight, blood pressure control, pulse oximetry, supplemental oxygen, monitor uop q shift, (3) Atrial fibrillation Current Visit: Yes Status: Acute Qualifiers: Atrial fibrillation type: paroxysmal Qualified Code(s): I48.0 - Paroxysmal atrial fibrillation Plan to address problem: continue therapeutic anticoagulation, telemetry monitoring. (4) HTN (hypertension) Current Visit: Yes Status: Acute Qualifiers: Hypertension type: essential hypertension Qualified Code(s): I10 - Esse ntial (primary) hypertension Plan to address problem: Monitor BP q shift, supportive care. (5) Obesity Current Visit: Yes Status: Acute Qualifiers: Body mass index: BMI 32.0-32.9 Plan to address problem: balanced diet, increased physical activity at discharge (6) CAD (coronary artery disease) Current Visit: Yes Status: Acute Qualifiers: Associated angina: without angina Plan to address problem: anette factor reduction, lipid panel, statin therapy as indicated, (7) DVT prophylaxis Current Visit: Yes Status: Acute Plan to address problem: SCD to BLE while in bed, continue therapeutic anticoagulation with Eliquis
--- NOTE | 2019-05-25 16:43 | Vascular Lab Report ---
"DUPLEX DOPPLER ULTRASOUND CAROTID, BILATERAL INDICATION: Stroke. Syncope. History of left carotid endarterectomy. COMPARISON: None available. FINDINGS: RIGHT CAROTID: Plaques at the carotid bulb and along the proximal internal carotid artery result in l ess than 50% stenosis by diameter. CCA velocity: 49 cm/sec. ICA peak systolic velocity: 54 cm/sec. ICA/CCA PSV Ratio: 1.1. Right Vertebral Artery: Antegrade flow. LEFT CAROTID: No significant atherosclerotic plaque. CCA velocity: 64 cm/sec. ICA peak systolic velocity: 74 cm/sec. ICA/CCA PSV Ratio: 1.2. Left Vertebral Artery: Antegrade flow. IMPRESSION: 1. Right Internal Carotid Artery: Less than 50% diameter stenosis. 2. Left Internal Carotid Artery: Normal. Velocity criteria are extrapolated from diameter data as defined by the Society of Radiologists in Ul trasound Consensus Conference, Radiology 2003; 229;340-346. Degree of || ICA PSV || Plaque || ICA/CCA Stenosis (%) || (cm/sec) || estimate (%) || PSV Ratio - Normal...............<125..............None.................<2.0 - <50....................<125..............<50....................<2.0 - 50-69................125-230.........>50....................2.0-4.0 - >70 but <100....>230..............>50....................>4.0 - Near...................High, low, .....visible................variable occlusion or none - Total...................None.............visible;................N/A occlusion no lumen Signer Name: Roni Hansen MD Signed: 05/25/2019 4:38 PM Workstation Name: [id number]"
--- NOTE | 2019-05-25 20:24 | Consultation ---
HISTORY OF PRESENT ILLNESS: An 88-year-old white male that presents to [facility] with an emergency evaluation for sudden onset of aphasia. The patient presents to [facility] Emergency Room for sudden onset of aphasia. Stroke alert was called. The patient was seen in the CT scan. Review of CT scan was made. The patient has a very old small lacunar infarct in the external capsule, but a very large ischemic infarct, which is old, the deep white matter of the left frontal lobe. There is no hemorrhage, no edema and no evidence of any marked changes in the periphery of this lesion, indicating this is anything other than an ischemic infarct and there is certainly no appearance that suggests that this is a metastatic tumor. The patient's condition and examination shows he is aphasic. He does respond to simple questions. Moving all extremities. No evidence of any seizure activity. Cranial nerves are intact. The patient does not have any evidence of craniocervical trauma, no bleeding, no seizure activity present. Vital signs as noted in the Emergency Room note. IMPRESSION: CT scan abnormalities indicate several small lacunar infarcts in the left hemisphere, but a very large old ischemic infarct in the left frontal lobe, certainly could be the cause of his seizure or could be a cause of recurrent stroke. Workup at this point is pending. Dr. Alonso is seeing the patient for the assessment of potential etiology of the prior strokes. Review of his records shows that he had had a previous CT done on 03/20/2014 and I have reviewed that CT scan that was done as an outpatient by Dr. Personthy that CT scan did show generalized atrophy, which is appropriate for the patient's stated age and the lesion in the left frontal lobe was present on that CT scan, although in the interval there is the development of a new infarct in the left external capsule. This old lesion was measured exactly 1.4 cm in diameter and is not appreciably changed from the current CT. There is a widened subarachnoid space. I do not think this is from a subdural, but simply brain atrophy with an enlarged subdural space, but without any evidence of having a subdural hematoma. My review of the CT scan at that point is almost unchanged from the current CT, although there is actually a very clear cut new infarct in the external capsule of the left hemisphere, but the large infarct in the left frontal lobe is unchanged. Both of these are chronic lesions. JOB# [id number] GARY/KAROLYN
[2019-05-25] MEDS ORDERED: XARELTO PO ONE (22:00)
[2019-05-26] MEDS ORDERED: SYNTHROID PO SCH (06:00)
[2019-05-26 07:57] VITALS: BP 140/83
--- NOTE | 2019-05-26 09:47 | Progress Note ---
Hospitalist Physical - Constitutional Vitals: Temp Pulse Resp BP Pulse Ox 98.0 F 74 18 140/83 96 05/26/19 07:37 05/26/19 07:37 05/26/19 07:37 05/26/19 07:37 05/26/19 07:37 General appearance: Present: obese Results - Labs CBC & Chem 7: 05/25/19 10:44 05/25/19 10:44 Labs: Laboratory Last Values WBC 6.9 K/mm3 (4.5-11.0) 05/25/19 10:44 RBC 5.41 M/mm3 (3.65-5.03) H 05/25/19 10:44 Hgb 16.1 gm/dl (11.8-15.2) H 05/25/19 10:44 Hct 47.7 % (35.5-45.6) H 05/25/19 10:44 MCV 88 fl (84-94) 05/25/19 10:44 MCH 30 pg (28-32) 05/25/19 10:44 MCHC 34 % (32-34) 05/25/19 10:44 RDW 14.2 % (13.2-15.2) 05/25/19 10:44 Plt Count 121 K/mm3 (140-440) L 05/25/19 10:44 Lymph % (Auto) 28.8 % (13.4-35.0) 05/25/19 10:44 [place] % (Auto) 7.4 % (0.0-7.3) H 05/25/19 10:44 Eos % (Auto) 0.8 % (0.0-4.3) 05/25/19 10:44 Baso % (Auto) 0.7 % (0.0-1.8) 05/25/19 10:44 Lymph # 2.0 K/mm3 (1.2-5.4) 05/25/19 10:44 [place] # 0.5 K/mm3 (0.0-0.8) 05/25/19 10:44 Eos # 0.1 K/mm3 (0.0-0.4) 05/25/19 10:44 Baso # 0.0 K/mm3 (0.0-0.1) 05/25/19 10:44 Seg Neutrophils % 62.3 % (40.0-70.0) 05/25/19 10:44 Seg Neutrophils # 4.3 K/mm3 (1.8-7.7) 05/25/19 10:44 PT 15.5 Sec. (12.2-14.9) H 05/25/19 10:44 INR 1.26 (0.87-1.13) H 05/25/19 10:44 APTT 32.9 Sec. (24.2-36.6) 05/25/19 10:44 16.5 Sec. (15.1-19.6) 05/25/19 10:44 Sodium 142 mmol/L (137-145) 05/25/19 10:44 Potassium 4.6 mmol/L (3.6-5.0) 05/25/19 10:44 Chloride 104.5 mmol/L (98-107) 05/25/19 10:44 Carbon Dioxide 21 mmol/L (22-30) L 05/25/19 10:44 21 mmol/L 05/25/19 10:44 BUN 19 mg/dL (9-20) 05/25/19 10:44 0.9 mg/dL (0.8-1.5) 05/25/19 10:44 Estimated GFR > 60 ml/min 05/25/19 10:44 21 % 05/25/19 10:44 Glucose 119 mg/dL (75-100) H 05/25/19 10:44 POC Glucose 117 (70-105) H 05/25/19 10:32 Lactic Acid 1.70 mmol/L (0.7-2.0) 05/25/19 10:54 Calcium 9.4 mg/dL (8.4-10.2) 05/25/19 10:44 Magnesium 1.70 mg/dL (1.7-2.3) 05/25/19 10:54 1.30 mg/dL (0.1-1.2) H 05/25/19 10:54 0.2 mg/dL (0-0.2) 05/25/19 10:54 1.1 mg/dL 05/25/19 10:54 AST 20 units/L (5-40) 05/25/19 10:54 ALT 13 units/L (7-56) 05/25/19 10:54 70 units/L (35-129) 05/25/19 10:54 27.0 umol/L (25-60) 05/25/19 10:54 76 units/L (55-170) 05/25/19 10:54 CK-MB (CK-2) 3.2 ng/mL (0.0-4.0) 05/25/19 10:54 CK-MB (CK-2) Rel Index 4.2 (0-4) H 05/25/19 10:54 < 0.010 ng/mL (0.00-0.029) 05/25/19 10:44 NT-Pro-B Natriuret Pep 498.3 pg/mL (0-900) 05/25/19 10:54 6.5 g/dL (6.3-8.2) 05/25/19 10:54 4.1 g/dL (3.9-5) 05/25/19 10:54 1.7 % 05/25/19 10:54 Straw (Yellow) 05/25/19 Unknown Clear (Clear) 05/25/19 Unknown 5.0 (5.0-7.0) 05/25/19 Unknown Ur Specific [place] 1.006 (1.003-1.030) 05/25/19 Unknown <15 mg/dl mg/dL (Negative) 05/25/19 Unknown Neg mg/dL (Negative) 05/25/19 Unknown Neg mg/dL (Negative) 05/25/19 Unknown Neg (Negative) 05/25/19 Unknown Neg (Negative) 05/25/19 Unknown Neg (Negative) 05/25/19 Unknown < 2.0 mg/dL (<2.0) 05/25/19 Unknown Ur Leukocyte Esterase Neg (Negative) 05/25/19 Unknown < 1.0 /HPF (0.0-6.0) 05/25/19 Unknown 1.0 /HPF (0.0-6.0) 05/25/19 Unknown Few /HPF 05/25/19 Unknown Active Medications - Current Medications Current Medications: Generic Name Dose Route Start Last Admin Trade Name Freq PRN Reason Stop Dose Admin Acetaminophen 650 mg 05/25/19 14:21 Tylenol PO Q4H PRN Pain, Mild (1-3) Albuterol 2.5 mg 05/25/19 14:21 Proventil IH Q3HRT PRN Shortness Of Breath Aspirin 325 mg 05/26/19 10:00 Aspirin PO QDAY [facility] Atorvastatin Calcium 40 mg 05/25/19 22:00 05/25/19 21:18 Lipitor PO Not Given QHS [facility] Bisacodyl 10 mg 05/25/19 14:21 Dulcolax NE QDAY PRN Constipation Cholecalciferol 2,000 unit 05/26/19 10:00 Vitamin D3 PO DAILY [facility] Cyanocobalamin 500 mcg 05/26/19 10:00 Vitamin B-12 PO QDAY [facility] Levothyroxine Sodium 50 mcg 05/26/19 06:00 05/26/19 05:34 Synthroid PO 50 mcg DAILY@0600 [facility] Administration Magnesium Hydroxide 30 ml 05/25/19 14:21 Milk Of Magnesia PO Q4H PRN Constipation Metoclopramide HCl 10 mg 05/25/19 14:21 Reglan PO Q6H PRN Nausea And Vomiting Multivitamins 1 each 05/26/19 10:00 Theragran Tab PO DAILY [facility] Multivitamins/Minerals 1 each 05/26/19 10:00 Caltrate Plus PO QDAY [facility] Ondansetron HCl 4 mg 05/25/19 14:21 Zofran IV Q8H PRN Nausea And Vomiting Pantoprazole Sodium 40 mg 05/26/19 10:00 Protonix PO DAILY [facility] Promethazine HCl 25 mg 05/25/19 14:21 Phenergan NE Q6H PRN Nausea And Vomiting Rivaroxaban 10 mg 05/26/19 10:00 Xarelto PO QDAY [facility] Sodium Chloride 10 ml 05/25/19 14:21 Sodium Chloride Flush Syringe 10 Ml IV PRN PRN LINE FLUSH Tamsulosin HCl 0.4 mg 05/26/19 10:00 Flomax PO QDAY [facility]
--- NOTE | 2019-05-26 09:56 | Progress Note ---
Subjective Date of service: 05/26/19 Interval history: this sounds like TIA rachael he was on xarelto seees vascular surgeon and has known carotid disease advise ECHO and U/S of the carotids then can go Objective - Vital Sign Vital Signs - 12hr 05/25/19 05/25/19 05/26/19 22:00 23:21 04:35 Temperature 98.0 F 68.0 F L Pulse Rate 70 73 70 Respiratory 20 18 Rate Blood Pressure 107/75 120/86 O2 Sat by Pulse 94 96 Oximetry 05/26/19 07:37 Temperature 98.0 F Pulse Rate 74 Respiratory 18 Rate Blood Pressure 140/83 O2 Sat by Pulse 96 Oximetry - Laboratory Findings CBC and BMP: 05/25/19 10:44 05/25/19 10:44 Abnormal Lab Findings: Abnormal Labs 05/25/19 05/25/19 05/25/19 10:32 10:44 10:44 RBC 5.41 H Hgb 16.1 H Hct 47.7 H Plt Count 121 L [place] % (Auto) 7.4 H PT 15.5 H INR 1.26 H Carbon Dioxide Glucose POC Glucose 117 H Total Bilirubin CK-MB (CK-2) Rel Index 05/25/19 05/25/19 05/25/19 10:44 10:54 10:54 RBC Hgb Hct Plt Count [place] % (Auto) PT INR Carbon Dioxide 21 L Glucose 119 H POC Glucose Total Bilirubin 1.30 H CK-MB (CK-2) Rel Index 4.2 H
[2019-05-26] MEDS ORDERED: VITAMIN D3 PO SCH (10:00)
[2019-05-26] MEDS ORDERED: PROTONIX PO SCH (10:00)
[2019-05-26] MEDS ORDERED: MULTIPLE VITAMINS PO SCH (10:00)
[2019-05-26] MEDS ORDERED: VITAMIN D3 2000 UNIT PO SCH (10:00)
[2019-05-26] MEDS ORDERED: XARELTO PO SCH (10:00)
[2019-05-26] MEDS ORDERED: XARELTO 10 MG PO SCH (10:00)
[2019-05-26] MEDS ORDERED: VITAMIN B-12 PO SCH (10:00)
[2019-05-26] MEDS ORDERED: CALTRATE PLUS PO SCH (10:00)
[2019-05-26] MEDS ORDERED: CALCIUM PO SCH (10:00)
[2019-05-26] MEDS ORDERED: ASPIRIN PO SCH (10:00)
[2019-05-26] MEDS ORDERED: LEVOTHYROXINE 50 MG PO SCH (10:00)
[2019-05-26] MEDS ORDERED: CYANOCOBALAMIN 500 MG PO SCH (10:00)
[2019-05-26] MEDS ORDERED: TAMSULOSIN PO SCH (10:00)
[2019-05-26] MEDS ORDERED: THERAGRAN Tab PO SCH (10:00)
[2019-05-26] MEDS ORDERED: [UNRECOGNIZED DRUG - OTHER] PO SCH (10:00)
[2019-05-26] MEDS ORDERED: NON-FORMULARY (Omeprazole 20 MG) PO SCH (10:00)
[2019-05-26] MEDS ORDERED: FLOMAX PO SCH (10:00)
--- NOTE | 2019-05-26 10:26 | Discharge Summary ---
Providers - Providers Date of Admission: 05/25/19 14:21 Attending physician: TONI JAIMES MD 05/25/19 14:21 Occupational Therapy Evaluate and Treat [CONS] Routine Comment: Reason For Exam: Neuro deficits Physical Therapy Evaluation and Treat [CONS] Routine Comment: Reason For Exam: Neuro deficits 05/25/19 14:27 Consult to Physician [CONS] Routine Comment: Consulting Provider: CONRAD RAMIREZ Physician Instructions: Reason For Exam: cva Primary care physician: [employer] Hospitalization Condition: Stable Hospital course: Increased crestor to 20 mg po qhs in the setting of TIA Disposition: [id number]-01 TO HOME OR SELFCARE Time spent for discharge: 35 mins Exam - Constitutional Vitals: Temp Pulse Resp BP Pulse Ox 98.0 F 74 18 140/83 99 05/26/19 07:37 05/26/19 07:37 05/26/19 07:37 05/26/19 07:37 05/26/19 10:00 Plan Activity: advance as tolerated, no driving until cleared by PCP, fall precautions Diet: low fat Special Instructions: record daily weights, record daily BP diary Additional Instructions: Follow with Primary Neurologist in 1 week Follow up with: MAX PEREZ MD [Primary Care Provider] - 7 Days Prescriptions: Crestor 20 mg PO DAILY #30
== END 2019-05-26 13:28 | disposition home or self-care (01) | DRG 69 ==
LOC: ED 10:21 → 4A 14:21
PROVIDERS: ADMIT Internal Medicine; ATTEND Internal Medicine
DX: G45.9 Transient cerebral ischemic attack, unspecified (principal); I50.23 Acute on chronic systolic (congestive) heart failure; G40.209 Localization-related (focal) (partial) symptomatic epilepsy and epileptic syndromes with complex partial seizures, not intractable, without status epilepticus; I42.9 Cardiomyopathy, unspecified; I11.0 Hypertensive heart disease with heart failure; E66.9 Obesity, unspecified; N40.0 Benign prostatic hyperplasia without lower urinary tract symptoms; E03.9 Hypothyroidism, unspecified; I48.0 Paroxysmal atrial fibrillation; I25.10 Atherosclerotic heart disease of native coronary artery without angina pectoris; Z79.899 Other long term (current) drug therapy; Z79.82 Long term (current) use of aspirin; Z95.5 Presence of coronary angioplasty implant and graft; Z90.49 Acquired absence of other specified parts of digestive tract; Z95.0 Presence of cardiac pacemaker; Z68.32 Body mass index [BMI] 32.0-32.9, adult; Z79.01 Long term (current) use of anticoagulants; Z82.49 Family history of ischemic heart disease and other diseases of the circulatory system
CPT/HCPCS: 36415; 70450; 80048; 80076; 81001; 82140; 82550; 82553; 82962; 83735; 83880; 84484; 85025; 85610; 85652; 85670; 85730; 93005; 93010; 93306; 93880; G0378; A9270-GY; J1953